=== PATIENT | male | born 1995 | race Caucasian/White ===

== ENCOUNTER 2018-10-12 02:15 | Emergency (ER) ==
[2018-10-12 02:21] VITALS: BP 113/74; TEMP 98.9; BMI 22.6
--- NOTE | 2018-10-12 02:28 | ED.PDOC ---
General ED Provider: Dr. CARLOS MCDUFFIE MD Chief Complaint: Earache Stated Complaint: earache Time Seen by Physician: 12:30 Mode of Arrival: Walk-In Information Source: Patient Exam Limitations: No limitations Nursing and Triage Documentation Reviewed and Agree: Yes Does patient meet sepsis criteria?: No If yes, has appropriate treatment been initiated?: Yes System Inflammatory Response Syndrome: Not Applicable Sepsis Protocol: For patient's 13 years and over: Temp is 96.8 and below OR 101 and greater Pulse >90 BPM Resp >20/minute Acutely Altered Mental Status Are patient's symptoms suggestive of a new infection, such as: -Pneumonia -Skin, Soft Tissue -Endocarditis -UTI -Bone, Joint Infection -Implantable Device -Acute Abdominal Infection -Wound Infection -Meningitis -Blood Stream Catheter Infection -Unknown EENT Complaint Exam - Ear Complaint/Exam Symptoms Are: Worse Timing: Constant Initial Severity: Moderate Current Severity: Moderate Character: Reports: Dull pain Alleviating: Reports: None Ear Surgical History: None Vesicles to External Pinna: No Vesicles to Tragus: No TMJ Tenderness: None Mastoid Tenderness: None Tragal Tenderness: None Differential Diagnoses: Mastoiditis, Otitis Externa Review of Systems - Review Of Systems Constitutional: Reports: No symptoms Eyes: Reports: No symptoms Ears, Nose, Mouth, Throat: Reports: Ear pain Respiratory: Reports: No symptoms Cardiac: Reports: No symptoms GI: Reports: No symptoms : Reports: No symptoms Musculoskeletal: Reports: No symptoms Skin: Reports: No symptoms Neurological: Reports: No symptoms Endocrine: Reports: No symptoms Hematologic/Lymphatic: Reports: No symptoms All Other Systems: Reviewed and Negative Past Medical History - Past Medical History Previously Healthy: Yes Endocrine: Reports: None Cardiovascular: Reports: None Respiratory: Reports: None Hematological: Reports: None Gastrointestinal: Reports: None Genitourinary: Reports: None Neuro/Psych: Reports: None Musculoskeletal: Reports: None Cancer: Reports: None - Surgical History General Surgical History: Reports: None - Family History Family History: Reports: None - Social History Smoking Status: Current every day smoker, Heavy tobacco smoker Hx Substance Use: No Alcohol Screening: Occasionally - Immunizations Tetanus Shot up to Date: Yes Physical Exam - Physical Exam Appearance: Well-appearing, No pain distress, Well-nourished Pain Distress: Mild Eyes: DONALD, EOMI, Conjunctiva clear ENT: Erythema Neck: Supple Respiratory: Airway patent, Breath sounds clear, Breath sounds equal, Respirations nonlabored Cardiovascular: RRR, Pulses normal, No rub, No murmur GI/: Soft, Nontender, No masses, Bowel sounds normal, No Organomegaly Musculoskeletal: Normal strength, ROM intact, No edema, No calf tenderness Skin: Warm, Dry, Normal color Neurological: Sensation intact, Motor intact, Reflexes intact, Cranial nerves intact, Alert, Oriented Psychiatric: Affect appropriate, Mood appropriate Critical Care Note - Critical Care Note Total Time (mins): 0 Course - Course Vital Signs: Temp Pulse Resp BP Pulse Ox 10/12/18 02:16 98.9 F 97 H 18 113/74 95 Departure - Departure Time of Disposition: 02:45 Disposition: HOME SELF-CARE Discharge Problem: Otitis media Instructions: Otitis Externa (ED) Condition: Good Pt referred to PMD for follow-up: Yes IPMP verified?: No Additional Instructions: Follow up with primary MD as needed. Prescriptions: Sulfamethoxazole/Trimethoprim [Bactrim Ds 800/160 mg] 2 tab PO Q12HR 7 Days #14 tablet NS Allergies/Adverse Reactions: Allergies No Known Drug Allergies Adverse Reaction (Verified 10/12/18 02:21) Home Medications: Ambulatory Orders Sulfamethoxazole/Trimethoprim [Bactrim Ds 800/160 mg] 2 tab PO Q12HR 7 Days #14 tablet NS 10/12/18
[2018-10-12] MEDS ORDERED: TORADOL IM STA (02:29)
== END 2018-10-12 02:51 | disposition home or self-care (01) ==
LOC: ED 02:15
DX: H66.90 Otitis media, unspecified, unspecified ear (principal)
CPT/HCPCS: 96372; 99282

== ENCOUNTER 2019-06-21 16:30 | Emergency (ER) ==
[2019-06-21 16:38] VITALS: BP 124/76; TEMP 98.5; BMI 21.2
--- NOTE | 2019-06-21 17:01 | DI ---
EXAM: Three views of the left ankle. History: Left ankle trauma. Findings / impression: Questionable minimally-displaced age indeterminate fracture of the distal fibu lar tip with adjacent soft tissue swelling. No dislocation. Ankle joint effusion is also present. Correlate with point tenderness.
--- NOTE | 2019-06-21 17:02 | DI ---
EXAM: Three views of the left foot. History: Left foot pain and trauma. Findings: A tibiotalar ankle joint effusion. Prominent distal fibular tip. Soft tissue swelling of the lateral ankle. Joint spaces are relatively preserved. No fractures are seen involving the bone s of the foot. No dislocation. Impression: No fractures are seen involving the bones of the foot.
--- NOTE | 2019-06-21 17:12 | ED.PDOC ---
General ED Provider: Dr. GABBY ROSSI Chief Complaint: Ankle Pain/Injury Stated Complaint: left ankle pain Time Seen by Physician: 16:30 (tawnya present at all times ) Information Source: Patient Exam Limitations: No limitations Nursing and Triage Documentation Reviewed and Agree: Yes Does patient meet sepsis criteria?: No System Inflammatory Response Syndrome: Not Applicable Sepsis Protocol: For patient's 13 years and over: Temp is 96.8 and below OR 101 and greater Pulse >90 BPM Resp >20/minute Acutely Altered Mental Status Are patient's symptoms suggestive of a new infection, such as: -Pneumonia -Skin, Soft Tissue -Endocarditis -UTI -Bone, Joint Infection -Implantable Device -Acute Abdominal Infection -Wound Infection -Meningitis -Blood Stream Catheter Infection -Unknown Musculoskeletal Complaint Exam - Ankle/Foot Complaint/Exam Location of Injury: Reports: Left, Ankle, Foot Mechanism of Injury: Reports: Trauma Onset/Duration: 9 hrs ago Symptoms Are: Reports: Still present Onset of Pain: Reports: Immediate (pain after inversion of the left ankle ) Initial Severity: Moderate Current Severity: Moderate Location: Reports: Discrete Character: Reports: Aching, Spasmodic Alleviating: Reports: Rest, Position Aggravating: Reports: Movement, Weight bearing, Prolonged standing Able to Bear Weight: Yes Associated Signs and Symptoms: Reports: Swelling (ankle). Denies: Redness, Bruising, Fever, Weakness, Numbness, Tingling Gout Risk Factors: Reports: None Related Surgical History: Reports: None Lower Extremity Findings: Present: Swelling Achilles Tendon Abnormality: No Tenderness: Present: Lateral malleolus, Midfoot, Metatarsals Limited Range of Motion: Present: Inversion Differential Diagnosis: Closed Fracture, Sprain, Strain Review of Systems - Review Of Systems Constitutional: Reports: No symptoms Eyes: Reports: No symptoms Ears, Nose, Mouth, Throat: Reports: No symptoms Respiratory: Reports: No symptoms Cardiac: Reports: No symptoms GI: Reports: No symptoms : Reports: No symptoms Musculoskeletal: Reports: Joint pain (ankle left and foot ) Skin: Reports: No symptoms Neurological: Reports: No symptoms Endocrine: Reports: No symptoms Hematologic/Lymphatic: Reports: No symptoms All Other Systems: Reviewed and Negative Past Medical History - Past Medical History Previously Healthy: Yes Endocrine: Reports: None Cardiovascular: Reports: None Respiratory: Reports: None Hematological: Reports: None Gastrointestinal: Reports: None Genitourinary: Reports: None Neuro/Psych: Reports: None Musculoskeletal: Reports: None Cancer: Reports: None - Surgical History General Surgical History: Reports: None - Family History Family History: Reports: None - Social History Smoking Status: Current every day smoker Hx Substance Use: No Alcohol Screening: Occasionally - Immunizations Tetanus Shot up to Date: Yes Physical Exam - Physical Exam Appearance: Well-appearing, No pain distress, Well-nourished Eyes: DONALD, EOMI, Conjunctiva clear ENT: Ears normal, Nose normal, Oropharynx normal Respiratory: Airway patent, Breath sounds clear, Breath sounds equal, Respirations nonlabored Cardiovascular: RRR, Pulses normal, No rub, No murmur GI/: Soft, Nontender, No masses, Bowel sounds normal, No Organomegaly Musculoskeletal: Limited ROM (ankle with distal fibular pain on palpation) Skin: Warm, Dry, Normal color Neurological: Sensation intact, Motor intact, Reflexes intact, Cranial nerves intact, Alert, Oriented Psychiatric: Affect appropriate, Mood appropriate Interpretation - Radiology Interpretation Radiology Interpretation By: Radiologist Radiology Results: Positive (distal fib fx nonedisplaced) Critical Care Note - Critical Care Note Total Time (mins): 0 Course - Course Orders, Labs, Meds: Orders Category Date Time Status ANKLE, LEFT MIN 3 VIEWS Stat RADS 06/21/19 16:36 Ordered FOOT, LEFT 3 VIEWS Stat RADS 06/21/19 16:36 Ordered Vital Signs: Temp Pulse Resp BP Pulse Ox 06/21/19 16:30 98.5 F 68 18 124/76 98 Departure - Departure Time of Disposition: 17:12 Disposition: HOME SELF-CARE Discharge Problem: Ankle pain Ankle fracture, left Qualifiers: Encounter type: initial encounter Fracture type: closed Qualified Code(s): S82.892A - Other fracture of left lower leg, initial encounter for closed fracture Instructions: Ankle Fracture (ED) Condition: Good Pt referred to PMD for follow-up: Yes IPMP verified?: No Additional Instructions: Please call your Family Physician as soon as possible to schedule a follow-up appointment.PLEASE NOTE THERE IS A BROKEN BONE INVOLVING THE THE LEFT ANKLE. USE CRUTCHES AT ALL TIMES SEE THE CLINIC FOR THE ORTHOPEDIC CONSULT. PAIN MEDS MAY MAKE DROWSY DO NOT DRIVE WHILE ON THIS MED Allergies/Adverse Reactions: Allergies No Known Drug Allergies Adverse Reaction (Verified 10/12/18 02:21) Home Medications: Ambulatory Orders 1 [No Reported Medications] 06/21/19 Disposition Discussed With: Patient
== END 2019-06-21 17:16 | disposition home or self-care (01) ==
LOC: ED 16:30
DX: S82.892A Other fracture of left lower leg, initial encounter for closed fracture (principal); X50.1XXA Overexertion from prolonged static or awkward postures, initial encounter; F17.210 Nicotine dependence, cigarettes, uncomplicated
CPT/HCPCS: 99282